=== PATIENT | male | born 1975 | race Caucasian/White ===

== ENCOUNTER 2021-05-28 15:00 | Outpatient (CLI) | payer OTHER, SELFPAY | END 2021-05-28 15:01 | disposition home or self-care (01) | LOC: SLEEP 05-29 16:20 | PROVIDERS: Family Provider Family Medicine; Visit Provider Family Medicine | DX: R53.83 Other fatigue (principal); G47.33 Obstructive sleep apnea (adult) (pediatric) | CPT/HCPCS: G0399 ==

== ENCOUNTER → 2022-03-20 08:05 | Outpatient (BNVA) | payer OTHER, SELFPAY | PROVIDERS: Family Provider Family Medicine; PCP Family Medicine; Visit Provider Family Medicine | DX: Z00.00 Encounter for general adult medical examination without abnormal findings (principal); R07.9 Chest pain, unspecified; R06.00 Dyspnea, unspecified; E34.9 Endocrine disorder, unspecified | CPT/HCPCS: 80053; 80061; 82040; 84270; 84403; 84443; 85025 ==